=== PATIENT | male | born 2000 | race Caucasian/White ===

== ENCOUNTER 2023-11-24 20:35 | Emergency (ER) | payer OTHER ==
[~2023-11-24] VITALS: Ht 180.3 cm; Wt 93.0 kg
[2023-11-24] MEDS ORDERED: KETOROLAC TROMETHAMINE INJ 30 MG/ML VIAL ONE (21:25)
[2023-11-24] MEDS: KETOROLAC TROMETHAMINE INJ 60 MG/2 ML VIAL IM ONE (21:26)
[2023-11-24] MEDS ORDERED: ONDANSETRON HCL/PF 4 MG/2 ML VIAL ONE (21:34)
[2023-11-24] MEDS: HYDROMORPHONE 1 MG/1 ML DISP.SYRIN IV ONE (21:35)
[2023-11-24] MEDS ORDERED: HYDROMORPHONE 1 MG/1 ML DISP.SYRIN ONE (21:35)
[2023-11-24] MEDS: ONDANSETRON HCL/PF - ER 4 MG/2 ML VIAL IV ONE (21:36)
[2023-11-24] MEDS ORDERED: PROPOFOL 20 ML IV ONE (21:43)
[2023-11-24] MEDS: PROPOFOL 200 MG/20 ML VIAL IV ONE ×2 (22:03→22:18)
[2023-11-24] MEDS ORDERED: NAPR500T6 PO (22:59)
[2023-11-24 23:09] VITALS: TEMP 98; O2SAT 98
[2023-11-24 23:13] VITALS: BP 160/89
== END 2023-11-24 23:19 | disposition home or self-care (01) ==
LOC: ER 20:55
DX: S82.51XA Displaced fracture of medial malleolus of right tibia, initial encounter for closed fracture (principal); S82.431A Displaced oblique fracture of shaft of right fibula, initial encounter for closed fracture; W01.0XXA Fall on same level from slipping, tripping and stumbling without subsequent striking against object, initial encounter; Y93.55 Activity, bike riding; Y92.488 Other paved roadways as the place of occurrence of the external cause; Y99.8 Other external cause status
CPT/HCPCS: 27788; 73600; 73610; 96374; 96375; 99284; J1170; J1885; J2405; J2704; J7040